=== PATIENT | female | born 1955 | race African-American/Black ===

== ENCOUNTER 2018-05-08 16:11 | Observation (INO) | payer MEDICARE, OTHER ==
[2018-05-08 16:37] LABS: ADD MAN DIFF? NO
[2018-05-08 16:38] LABS: ABNORMAL IP MESSAGE 1; BASOPHILS % 0.6 % (0.0-2.0); EOSINOPHILS # 0.1 10^3/ul (0.0-0.5); EOSINOPHILS % 2.1 % (0.0-7.0); HEMATOCRIT 37.3 % (37.0-47.0); HEMOGLOBIN 10.7 g/dl (12.0-16.0); LYMPHOCYTES # 1.9 10^3/ul (0.8-2.9); MEAN CORPUSCULAR HEMOGLOBIN 20.5 pg (29.0-33.0); MEAN CORPUSCULAR HGB CONC 28.7 g/dl (32.0-37.0); MEAN CORPUSCULAR VOLUME 71.3 fl (82.0-101.0); MEAN PLATELET VOLUME 10.7 fl (7.4-10.4); MONOCYTE # 0.6 10^3/ul (0.3-0.9); MONOCYTES % 9.3 % (0.0-11.0); NEUTROPHIL # 4.1 10^3/ul (1.6-7.5); NEUTROPHILS % 59.9 % (39.0-77.0); PLATELET COUNT 252 10^3/UL (140-415); RED BLOOD COUNT 5.23 10^6/ul (4.20-5.40); RED CELL DISTRIBUTION WIDTH 22.8 % (11.5-14.5)
[2018-05-08 16:38] LABS: WHITE BLOOD COUNT 6.8 10^3/ul (4.8-10.8)
[2018-05-08 16:58] LABS: ANION GAP 7 (5-13); BLOOD UREA NITROGEN 14 mg/dl (7-20); CALCIUM 11.1 mg/dl (8.4-10.2); CARBON DIOXIDE 26 mmol/L (21-31); CHLORIDE 108 mmol/L (97-110); CREATININE 0.97 mg/dl (0.44-1.00); Estimated GFR > 60 mL/min (>60); GLUCOSE 85 mg/dl (70-220); POSITIVE DIFF @See below; POTASSIUM 4.4 mmol/L (3.5-5.1); SODIUM 141 mmol/L (135-144)
[2018-05-08] MEDS: morphine 4 MG/ML VIAL IV (17:00)
[2018-05-08 17:09] LABS: TROPONIN-I < 0.012 ng/ml (0.000-0.120)
[2018-05-08] MEDS: NITROGLYCERIN (SL) 0.4 MG TAB SL (17:49)
[2018-05-08] MEDS: FAMOTIDINE 20 MG TAB PO (18:04)
[2018-05-08] MEDS: KETOROLAC 30 MG INJ IV (18:32)
[2018-05-08] MEDS ORDERED: morphine 2 MG INJ IV (19:30)
[2018-05-08] MEDS ORDERED: NACL 0.9% 3 ML SYG IV (19:30)
[2018-05-08] MEDS ORDERED: ONDANSETRON 4 MG INJ IV (19:30)
[2018-05-08] MEDS ORDERED: ACETAMINOPHEN 325 MG TAB PO ×2 (19:30)
[2018-05-08] MEDS ORDERED: hydrALAzine 20 MG INJ IV (19:30)
[2018-05-08] MEDS ORDERED: ALBUTEROL/IPRATROPIUM (NEB) 3 ML AMP HHN (19:30)
[2018-05-08 19:51] LABS: PROTIME 12.3 Sec (11.9-14.9)
[2018-05-08 19:52] LABS: PARTIAL THROMBOPLASTIN TIME 24.9 Sec (23.0-35.0)
[2018-05-08 20:17] LABS: FREE T4 (FREE THYROXINE) 0.84 ng/dl (0.78-2.44)
[2018-05-08 20:20] LABS: CREATINE KINASE 59 IU/L (23-200)
[2018-05-08 20:32] LABS: CK INDEX 0.8; CK-MB 0.48 ng/ml (0.0-2.4); TROPONIN-I < 0.012 ng/ml (0.000-0.120)
[2018-05-08] MEDS: SOD CHLORIDE 0.45% 1,000 ML IV (22:08)
[2018-05-08] MEDS: ZOLPIDEM 5 MG TAB PO (22:09)
[2018-05-08] MEDS: GABAPENTIN 300 MG CAP PO (22:09)
[2018-05-08] MEDS: ATORVASTATIN 40 MG TAB PO (22:09)
[2018-05-08] MEDS: HEPARIN 5,000 UNIT/1 ML VIAL SC (22:33)
[2018-05-08 22:36] LABS: CREATINE KINASE 51 IU/L (23-200)
[2018-05-08 22:48] LABS: CK INDEX 0.9; CK-MB 0.45 ng/ml (0.0-2.4); TROPONIN-I < 0.012 ng/ml (0.000-0.120)
[2018-05-08] MEDS: DIPHENHYDRAMINE 25 MG CAP PO (23:48)
[2018-05-09] MEDS: HYDROCODONE/APAP (5/325) TAB PO (03:18)
[2018-05-09] MEDS: NITROGLYCERIN (SL) 0.4 MG TAB SL ×6 (04:39→18:51)
[2018-05-09 05:55] LABS: ADD MAN DIFF? NO
[2018-05-09 06:15] LABS: HEMOGLOBIN A1C 6.3 % (0-5.9)
[2018-05-09 06:27] LABS: CHOLESTEROL 118 mg/dl (100-200)
[2018-05-09 06:27] LABS: CHOL/HDL RATIO 3.2 RATIO; HDL CHOLESTEROL 36 mg/dl (35-98); LDL CHOLESTEROL,CALCULATED 50 mg/dl; TRIGLYCERIDES 161 mg/dl (0-149)
[2018-05-09 06:28] LABS: ANION GAP 10 (5-13); BLOOD UREA NITROGEN 14 mg/dl (7-20); CALCIUM 10.6 mg/dl (8.4-10.2); CARBON DIOXIDE 25 mmol/L (21-31); CHLORIDE 105 mmol/L (97-110); Estimated GFR > 60 mL/min (>60); GLUCOSE 141 mg/dl (70-220); PHOSPHORUS 3.9 mg/dl (2.5-4.9); SODIUM 140 mmol/L (135-144)
[2018-05-09 06:29] LABS: ABNORMAL IP MESSAGE 1; BASOPHIL # 0.1 10^3/ul (0.0-0.1); BASOPHILS % 0.9 % (0.0-2.0); EOSINOPHILS # 0.2 10^3/ul (0.0-0.5); EOSINOPHILS % 2.8 % (0.0-7.0); HEMATOCRIT 33.9 % (37.0-47.0); HEMOGLOBIN 9.6 g/dl (12.0-16.0); LYMPHOCYTES # 2.7 10^3/ul (0.8-2.9); LYMPHOCYTES % 39.3 % (15.0-51.0); MEAN CORPUSCULAR HEMOGLOBIN 20.5 pg (29.0-33.0); MEAN CORPUSCULAR HGB CONC 28.3 g/dl (32.0-37.0); MEAN CORPUSCULAR VOLUME 72.3 fl (82.0-101.0); MEAN PLATELET VOLUME 11.2 fl (7.4-10.4); MONOCYTE # 0.6 10^3/ul (0.3-0.9); NEUTROPHIL # 3.3 10^3/ul (1.6-7.5); NEUTROPHILS % 48.6 % (39.0-77.0); PLATELET COUNT 239 10^3/UL (140-415); POSITIVE DIFF @See below; RED BLOOD COUNT 4.69 10^6/ul (4.20-5.40); RED CELL DISTRIBUTION WIDTH 22.5 % (11.5-14.5)
[2018-05-09 06:29] LABS: WHITE BLOOD COUNT 6.9 10^3/ul (4.8-10.8)
[2018-05-09 06:33] LABS: CREATINE KINASE 51 IU/L (23-200)
[2018-05-09 06:38] LABS: CK-MB 0.54 ng/ml (0.0-2.4); TROPONIN-I < 0.012 ng/ml (0.000-0.120)
[2018-05-09 06:39] LABS: CK INDEX 1.1
[2018-05-09] MEDS: PANTOPRAZOLE (EC) 40 MG TAB PO (06:40)
[2018-05-09 07:47] LABS: ANISOCYTOSIS 1+ (0-0); BASOPHILS % (M) 1 % (0-2); ELLIPTO 1+ (0-0); EOSINOPHILS % (M) 4 % (0-7); GIANT THROMBO% (M) 1 % (0-0); HYPOCHROMASIA 2+ (0-0); LYMPHOCYTES #M 2.9 10^3/ul (0.8-2.9); LYMPHOCYTES % (M) 43 % (15-51); MICROCYTOSIS 1+ (0-0); MONOCYTE #M 0.2 10^3/ul (0.3-0.9); MONOCYTES % (M) 3 % (0-11); OVALOCYTES 1+ (0-0); PLATELET ESTIMATE NORMAL; POIKILOCYTOSIS 1+ (0-0); POLYCHROMASIA 2+ (0-0); REACTIVE LYMPHOCYTES #M 0.2 10^3/ul (0.0-0.0); REACTIVE LYMPHOCYTES% (M) 3 % (0-0); SEGMENTED NEUTROPHILS (M) % 46 % (39-77); SMUDGE%M 7 % (0-0); TARGET CELLS 1+ (0-0)
[2018-05-09] MEDS: SOD CHLORIDE 0.45% 1,000 ML IV ×2 (08:40→22:06)
[2018-05-09] MEDS: GABAPENTIN 300 MG CAP PO ×2 (08:43→20:00)
[2018-05-09] MEDS: ASPIRIN (EC) 325 MG TAB PO (08:43)
[2018-05-09] MEDS: HEPARIN 5,000 UNIT/1 ML VIAL SC (08:47)
[2018-05-09] MEDS ORDERED: HYDROCODONE/APAP (10/325) TAB PO (10:30)
[2018-05-09 10:58] LABS: CREATINE KINASE 53 IU/L (23-200)
[2018-05-09 11:11] LABS: CK INDEX 1.1; CK-MB 0.59 ng/ml (0.0-2.4); TROPONIN-I < 0.012 ng/ml (0.000-0.120)
[2018-05-09] MEDS: CARISOPRODOL 350 MG TAB PO (11:33)
[2018-05-09] MEDS: LORAZEPAM 2 MG INJ IV (15:16)
[2018-05-09] MEDS: HYDROmorphONE 0.5 MG/0.5 ML SYG IV (18:55)
[2018-05-09 19:57] LABS: TROPONIN-I < 0.012 ng/ml (0.000-0.120)
[2018-05-09] MEDS: ZOLPIDEM 5 MG TAB PO (20:00)
[2018-05-09] MEDS: ATORVASTATIN 40 MG TAB PO (20:00)
[2018-05-09] MEDS ORDERED: HYDROmorphONE 2 MG TAB (23:02)
[2018-05-09] MEDS: HYDROmorphONE 2 MG TAB PO (23:06)
[2018-05-10] MEDS: ONDANSETRON 4 MG INJ IV (01:39)
[2018-05-10] MEDS: MAGNESIUM HYDROXIDE 30ML CUP PO (01:39)
[2018-05-10] MEDS: DOCUSATE SODIUM 100 MG CAP PO (01:39)
[2018-05-10] MEDS: GUAIFENESIN 20 MG/ML 5ML CUP PO (04:40)
[2018-05-10] MEDS: PANTOPRAZOLE (EC) 40 MG TAB PO (05:51)
[2018-05-10 06:24] LABS: ADD MAN DIFF? NO
[2018-05-10 06:34] LABS: ABNORMAL IP MESSAGE 1; BASOPHIL # 0.1 10^3/ul (0.0-0.1); BASOPHILS % 1.3 % (0.0-2.0); EOSINOPHILS # 0.2 10^3/ul (0.0-0.5); EOSINOPHILS % 2.7 % (0.0-7.0); HEMATOCRIT 34.9 % (37.0-47.0); LYMPHOCYTES # 2.4 10^3/ul (0.8-2.9); LYMPHOCYTES % 38.2 % (15.0-51.0); MEAN CORPUSCULAR HEMOGLOBIN 20.6 pg (29.0-33.0); MEAN CORPUSCULAR HGB CONC 28.7 g/dl (32.0-37.0); MONOCYTE # 0.7 10^3/ul (0.3-0.9); MONOCYTES % 10.6 % (0.0-11.0); NEUTROPHIL # 2.9 10^3/ul (1.6-7.5); PLATELET COUNT 240 10^3/UL (140-415); RED BLOOD COUNT 4.85 10^6/ul (4.20-5.40); RED CELL DISTRIBUTION WIDTH 22.7 % (11.5-14.5)
[2018-05-10 06:34] LABS: WHITE BLOOD COUNT 6.2 10^3/ul (4.8-10.8)
[2018-05-10 06:52] LABS: POSITIVE DIFF @See below
[2018-05-10 07:14] LABS: ANION GAP 7 (5-13); BLOOD UREA NITROGEN 14 mg/dl (7-20); CALCIUM 10.7 mg/dl (8.4-10.2); CARBON DIOXIDE 30 mmol/L (21-31); CHLORIDE 103 mmol/L (97-110); CREATININE 1.02 mg/dl (0.44-1.00); Estimated GFR > 60 mL/min (>60); GLUCOSE 108 mg/dl (70-220); SODIUM 140 mmol/L (135-144)
[2018-05-10 07:26] LABS: POTASSIUM 4.3 mmol/L (3.5-5.1)
[2018-05-10] MEDS: ASPIRIN (EC) 81 MG TAB PO (08:04)
[2018-05-10] MEDS: GABAPENTIN 300 MG CAP PO (08:04)
[2018-05-10] MEDS: CARISOPRODOL 350 MG TAB PO (08:13)
[2018-05-10] MEDS: SOD CHLORIDE 0.45% 1,000 ML IV (08:13)
== END 2018-05-10 13:55 | disposition home or self-care (01) ==
LOC: E/R 16:11 → 6WM 19:27
DX: R55 Syncope and collapse (principal); R07.9 Chest pain, unspecified; I25.10 Atherosclerotic heart disease of native coronary artery without angina pectoris; Z95.5 Presence of coronary angioplasty implant and graft; I25.2 Old myocardial infarction; Z79.82 Long term (current) use of aspirin; I10 Essential (primary) hypertension; E78.5 Hyperlipidemia, unspecified; E11.9 Type 2 diabetes mellitus without complications; G47.30 Sleep apnea, unspecified; Z87.11 Personal history of peptic ulcer disease
CPT/HCPCS: 36415; 70551; 71045; 80048; 80061; 82550; 82553; 83036; 83735; 84100; 84439; 84443; 84484; 85025; 85610; 85730; 93005; 93306; 93880; 96374; 96375; 99285-25; G0378